=== PATIENT | male | born 1950 | race Caucasian/White ===

== ENCOUNTER → 2016-04-02 | Outpatient (CLI) | payer MEDICARE, OTHER ==
[2016-04-02 12:37] LABS: Basophils # (A) 0.1 k/uL (0-0.2); Basophils % (A) 1 %; CH 33.4; CHCM 34.6; Eosinophils # (A) 0.2 k/uL (0-0.7); Eosinophils % (A) 3 %; HCT 44.3 % (39.0-53.0); HDW 2.69; HGB 15.2 gm/dL (13.0-17.5); Luc # (Auto) 0.25; Luc % (Auto) 4; Lymphocytes # (A) 1.4 k/uL (1.0-4.8); Lymphocytes % (A) 21 %; MCH 33.1 pg (25.0-35.0); MCHC 34.2 g/dL (31.0-37.0); MCV 96.8 fL (80.0-100.0); Mean Platelet Volume 6.8; Monocytes # (A) 0.5 k/uL (0-1.0); Monocytes % (A) 7 %; Neutrophils # (A) 4.5 k/uL (1.3-7.7); Neutrophils % (A) 65 %; RBC 4.57 m/uL (4.30-5.90); RDW 12.3 % (11.5-15.5); WBC 6.9 k/uL (3.8-10.6); WBC (Perox) 7.49
[2016-04-02 12:59] LABS: ALT 41 U/L (21-72); AST 29 U/L (17-59); Alkaline Phosphatase 49 U/L (38-126); Anion Gap 12 mmol/L; Blood Urea Nitrogen 17 mg/dL (9-20); Calcium 9.4 mg/dL (8.4-10.2); Carbon Dioxide 25 mmol/L (22-30); Chloride 106 mmol/L (98-107); Cholesterol 151 mg/dL (<200); Creatine Kinase 85 U/L (55-170); Glucose 108 mg/dL (74-99); HDL Cholesterol 44 mg/dL (40-60); Non-African American GFR(MDRD) >60 (>60 ml/min/1.73 sqM); Potassium 4.7 mmol/L (3.5-5.1); Sodium 143 mmol/L (137-145); Total Bilirubin 0.7 mg/dL (0.2-1.3); Total Protein 7.3 g/dL (6.3-8.2); Triglycerides 96 mg/dL (<150)
== END | disposition home or self-care (01) ==
LOC: LABWHC1 12:09
PROVIDERS: ATTEND Family Medicine
DX: Z00.01 Encounter for general adult medical examination with abnormal findings (principal); E78.5 Hyperlipidemia, unspecified; Z12.5 Encounter for screening for malignant neoplasm of prostate; Z12.11 Encounter for screening for malignant neoplasm of colon
CPT/HCPCS: 80061; 80053; 82550; 85025; 36415; G0103

== ENCOUNTER → 2017-11-01 | Outpatient (CLI) | payer MEDICARE, OTHER ==
[2017-11-01 11:13] LABS: Basophils % (A) 1 %; Eosinophils # (A) 0.2 k/uL (0-0.7); Eosinophils % (A) 3 %; HCT 45.3 % (39.0-53.0); HGB 14.8 gm/dL (13.0-17.5); Lymphocytes # (A) 1.5 k/uL (1.0-4.8); Lymphocytes % (A) 22 %; MCH 32.2 pg (25.0-35.0); MCHC 32.7 g/dL (31.0-37.0); MCV 98.4 fL (80.0-100.0); Mean Platelet Volume 6.3; Monocytes # (A) 0.6 k/uL (0-1.0); Monocytes % (A) 8 %; Neutrophils # (A) 4.3 k/uL (1.3-7.7); Neutrophils % (A) 63 %; Platelet Count 234 k/uL (150-450); RDW 12.3 % (11.5-15.5); WBC 6.8 k/uL (3.8-10.6)
[2017-11-01 11:19] LABS: Albumin 4.1 g/dL (3.5-5.0); Calcium 9.4 mg/dL (8.4-10.2); Potassium 4.6 mmol/L (3.5-5.1); Total Bilirubin 0.6 mg/dL (0.2-1.3); Total Protein 6.9 g/dL (6.3-8.2)
[2017-11-01 11:48] LABS: PSA Annual Screen 1.93 ng/mL (0.00-4.00)
[2017-11-01 16:23] LABS: Hepatitis A Antibody IgM Non-Reactive (Non-Reactive); Hepatitis B Core IgM Non-Reactive (Non-Reactive)
== END | disposition home or self-care (01) ==
LOC: LABWHC1 10:25
PROVIDERS: ATTEND Family Medicine
DX: Z00.01 Encounter for general adult medical examination with abnormal findings (principal); Z12.5 Encounter for screening for malignant neoplasm of prostate; E78.5 Hyperlipidemia, unspecified; Z11.59 Encounter for screening for other viral diseases
CPT/HCPCS: 80061; 80053; 80074; 82550; 84443; 85025; 36415; G0103

== ENCOUNTER 2018-05-05 09:45 | Emergency (ER) | payer MEDICARE, OTHER ==
[2018-05-05] MEDS ORDERED: CYCLOBENZAPRINE 10 MG TAB PO STA (10:11)
[2018-05-05] MEDS ORDERED: KETOROLAC 60 MG/2 ML VIAL IM STA (10:11)
--- NOTE | 2018-05-05 10:25 | ED ---
Extremity Problem HPI - General Chief complaint: Extremity Problem,Nontraumatic Stated complaint: Shoulder Pain Time Seen by Provider: 05/05/18 09:52 Source: patient, RN notes reviewed, old records reviewed Mode of arrival: ambulatory Limitations: no limitations - History of Present Illness Initial comments: Patient is a 59-year-old male presents emergency department today with complaints of right shoulder plain. Patient reports he's been having symptoms intermittently for the past month. Patient reports that he's had pain with range of motion. He reports that yesterday he was lifting a book felt a sudden pop within the shoulder and has been unable to extend or abduct the arm. - Related Data Home Medications Medication Instructions Recorded Confirmed Apixaban [Eliquis] 5 mg PO BID 05/05/18 05/05/18 Metoprolol Succinate [Toprol Xl] 100 mg PO DAILY 05/05/18 05/05/18 Multivitamin,Therapeutic [Thera] 1 tab PO DAILY 05/05/18 05/05/18 Simvastatin [Zocor] 40 mg PO HS 05/05/18 05/05/18 Previous Rx's Medication Instructions Recorded Cyclobenzaprine [Flexeril] 10 mg PO TID #15 tab 05/05/18 Ibuprofen 600 mg PO TID #20 tablet 05/05/18 Allergies Allergy/AdvReac Type Severity Reaction Status Date / Time No Known Allergies Allergy Verified 05/05/18 10:15 Review of Systems ROS Statement: Those systems with pertinent positive or pertinent negative responses have been documented in the HPI. ROS Other: All systems not noted in ROS Statement are negative. Past Medical History Past Medical History: Atrial Fibrillation History of Any Multi-Drug Resistant Organisms: None Reported Past Surgical History: Appendectomy, Tonsillectomy Past Psychological History: No Psychological Hx Reported Smoking Status: Never smoker Past Alcohol Use History: Occasional Past Drug Use History: None Reported General Exam - General Exam Comments Initial Comments: 59-year-old male. Alert and oriented 3. Patient appears in no significant distress. Limitations: no limitations General appearance: alert, in no apparent distress Head exam: Present: atraumatic, normocephalic, normal inspection Eye exam: Present: normal appearance, PERRL, EOMI. Absent: scleral icterus, conjunctival injection, periorbital swelling ENT exam: Present: normal exam, mucous membranes moist Neck exam: Present: normal inspection. Absent: tenderness, meningismus, lymphadenopathy Respiratory exam: Present: normal lung sounds bilaterally. Absent: respiratory distress, wheezes, rales, rhonchi, stridor Cardiovascular Exam: Present: regular rate, normal rhythm, normal heart sounds. Absent: systolic murmur, diastolic murmur, rubs, gallop, clicks GI/Abdominal exam: Present: soft, normal bowel sounds. Absent: distended, tenderness, guarding, rebound, rigid Extremities exam: Present: normal inspection, full ROM, normal capillary refill. Absent: tenderness, pedal edema, joint swelling, calf tenderness Back exam: Present: normal inspection Neurological exam: Present: alert, oriented X3, CN II-XII intact Psychiatric exam: Present: normal affect, normal mood Skin exam: Present: warm, dry, intact, normal color. Absent: rash Course Vital Signs 05/05/18 09:47 Temperature 98.2 F Pulse Rate 94 Respiratory 18 Rate Blood Pressure 144/91 O2 Sat by Pulse 98 Oximetry Medical Decision Making - Medical Decision Making 59-year-old male presents with progressive right shoulder pain. Yesterday felt a pop and now has limited range of motion. Patient has pain with abduction. X- ray shows evidence of significant osteoarthritis. Patient was placed in a sling and advised to take anti-inflammatory medication and pain medicine as needed. Discussed the Patient can follow-up with contracting support specialist. All questions were answered return parameters were discussed. - Radiology Data Radiology results: report reviewed Before meals joint shows arthropathy. No fracture dislocation. Alignment bone mineralization are normal. Minimal apical pleural thickening on the right. Some marginal spurring present on the Lomotil humeral joint. Evidence of osteoarthritis. Disposition Clinical Impression: Osteoarthritis of right shoulder, Rotator cuff arthropathy Disposition: HOME SELF-CARE Condition: Good Instructions (If sedation given, give patient instructions): Rotator Cuff Tendinitis (ED) Additional Instructions: Patient has a rest, apply alternating ice and warm compresses over shoulder. Patient should follow-up with contracting support specialist. Wear sling for practice some range of motion to maintain flexibility within the joint. Patient should take the medication as prescribed. Return to emergency department if any alarming signs or symptoms occur. Prescriptions: Cyclobenzaprine [Flexeril] 10 mg PO TID #15 tab Ibuprofen 600 mg PO TID #20 tablet Is patient prescribed a controlled substance at d/c from ED?: No Referrals: Ke Schmidt MD [Primary Care Provider] - 1-2 days Piyush Stockton DO [Doctor of Osteopathic Medicine] - 1-2 days Joe Dockery DO [Doctor of Osteopathic Medicine] - 1-2 days Time of Disposition: 11:10
--- NOTE | 2018-05-05 10:52 | XR ---
Right shoulder HISTORY: Pain 3 views of the right shoulder Acromioclavicular joint shows arthropathy. No fracture or dislocation is evident. Alignment and bone mineralization are normal. Minimal apical pleural thickening present on the right. Some marginal spur ring present at the glenohumeral joint. IMPRESSION: Osteoarthritis.
[2018-05-05 11:27] VITALS: BP 138/68; PULSE 82; RESP 19; TEMP 98.7
== END 2018-05-05 11:27 | disposition home or self-care (01) ==
LOC: EC 09:45
DX: M19.011 Primary osteoarthritis, right shoulder (principal); I48.91 Unspecified atrial fibrillation; Z79.01 Long term (current) use of anticoagulants; Z79.899 Other long term (current) drug therapy
CPT/HCPCS: 73030; 99284; 96372; J1885

== ENCOUNTER → 2018-05-26 | Outpatient (CLI) | payer MEDICARE, OTHER ==
--- NOTE | 2018-05-26 10:03 | MR ---
EXAMINATION TYPE: MR shoulder RT wo con DATE OF EXAM: 05/26/2018 COMPARISON: X-ray 05/12/2018 HISTORY: Pain in right shoulder TECHNIQUE: Multiplanar, multisequence imaging of the right shoulder is performed without contrast. FINDINGS: Rotator Cuff: There is intrasubstance signal within the anterior fibers of the supraspinatus tendon i nsertion compatible severe tendinosis. Partial bursal surface fraying and tear noted. Acromioclavicular Joint: There is arthropathy of the AC joint which is resulting in impingement of th e supraspinatus tendon and muscle. Glenohumeral Joint: Joint space is mildly narrowed and there is a small amount of fluid within the angela int. The glenohumeral ligaments intact. Labrum: There is a SLAP tear of the superior labrum. Biceps Tendon: The long head of biceps is in normal location within bicipital groove. Increased fluid within the bicipital tendon sheath compatible tendinosis. There appears to be thinning and increased signal in the intracapsular portion of the biceps tendon suspicious for partial tear. Bone marrow signal: No focal abnormal marrow signal is appreciated. Other: Small amount of fluid is seen in the suprascapular notch tiny cyst not excluded. IMPRESSION: 1. Impingement secondary to AC joint arthropathy resulting in tendinosis supraspinatus tendon with bu rsal scuffing or partial tear at the insertion. No through thickness tear or retraction. 2. SLAP tear. 3. Bicipital tendinosis with the most marked findings seen involving the intracapsular portion of the tendon. Partial intrasubstance tear without retraction suspected.
== END | disposition home or self-care (01) ==
LOC: RADMRIMAIN 09:17
PROVIDERS: ATTEND Orthopaedic Surgery
DX: S43.491A Other sprain of right shoulder joint, initial encounter (principal); M19.011 Primary osteoarthritis, right shoulder; M67.813 Other specified disorders of tendon, right shoulder; M25.811 Other specified joint disorders, right shoulder

== ENCOUNTER → 2018-06-26 | Outpatient (CLI) | payer MEDICARE, OTHER ==
--- NOTE | 2018-06-26 19:58 | P.STRESS ---
- Stress Test Note Stress Test Results/Findings: Exam Performed: stress echo exercise Exam Date: 06/26/18 Reason for Exam: AFIB Height: 5 ft 9 in Weight: 88.451 kg Protocol: STRESS ECHO Stage: 2 Duration of Exercise: 6:00 Resting Heart Rate: 108 Resting Blood Pressure: 107/70 Maximum Achieved Heart Rate: 162 Maximum Achieved Blood Pressure: 134/68 85% PMHR: 129 100% PMHR: 152 METS: 7.5 Technologist Comment: Stress Test Results/Findings: Baseline heart rate 108 beats a minute, Baseline blood pressure 107/70 mmHg Baseline ECG shows atrial fibrillation with nonspecific ST-T abnormalities Patient excised on a Audi protocol for 6 minutes. He achieved a peak was 62 beats a minute, normal blood pressure response to excise The baseline 2-D echo images showed normal LV systolic function without segmental wall motion abnormalities At peak exercise there was excellent augmentation of overall LV contractility without development of any wall motion abnormalities @Recovery revealed global LV systolic function to be normal Impression Atrial fibrillation at baseline No ECG or echocardiographic evidence for ischemia
== END | disposition home or self-care (01) ==
LOC: RADNMMAIN 08:54
PROVIDERS: ATTEND Family Medicine
DX: I48.91 Unspecified atrial fibrillation (principal)
CPT/HCPCS: 93351

== ENCOUNTER 2018-07-06 05:53 | Day surgery (SDC) | payer MEDICARE, OTHER ==
[2018-07-03 13:16] VITALS: BMI 28.8
--- NOTE | 2018-07-05 17:08 | HP ---
HISTORY AND PHYSICAL DATE OF SURGERY: 07/06/2018 Piyush Hennessy is a 67-year-old patient seen with progressive right shoulder pain. We discussed treatment options. He elected to proceed with arthroscopy. Consent regarding the procedure was obtained. PAST MEDICAL HISTORY: Hypertension, hyperlipidemia. PAST SURGICAL HISTORY: Tonsillectomy, appendectomy. DAILY MEDICATIONS: 1. Eliquis. 2. Metoprolol. 3. Simvastatin. ALLERGIES: NONE. SOCIAL HISTORY: He denies current tobacco use. PHYSICAL EVALUATION OF THE RIGHT SHOULDER: Flexion is 100 degrees. Abduction is 90 degrees. External rotation is 60 degrees with weakness. There is tenderness along the anterolateral acromion and rotator cuff insertion site. Impingement sign is positive at 90 degrees. Drop-arm sign positive. Distal neurovascular exam intact. RADIOGRAPHS: Radiographs of the right shoulder show type 2 anterior acromion and acromioclavicular joint osteoarthritis. MRI of right shoulder shows partial rotator cuff tear, labral tear, partial long head biceps tendon tear and acromioclavicular joint osteoarthritis. IMPRESSION: 1. Right shoulder impingement with rotator cuff tear. 2. Right shoulder acromioclavicular joint osteoarthritis. 3. Right shoulder partial long head biceps tendon tear. PLAN: Right shoulder arthroscopy with subacromial decompression, probable arthroscopic rotator cuff repair, probable Mitchell procedure, possible biceps tenotomy and debridement. MMODL / IJN: [id number] /
[~2018-07-06 05:53] MED LIST: DEXAMETHASONE SOD PHOSPHATE 10 MG/ML 1 ML VIAL IV ONE; HYDROmorphone 0.5 MG/0.5 ML SYRINGE IVP PRN; LACTATED RINGERS 1,000 ML IV SCH; LIDOCAINE 1% 20 ML VIAL (10MG/ML) FOR IV START INTRADERMA PRN; ONDANSETRON 4 MG/2 ML VIAL IVP ONE; ceFAZolin IN SWFI 2 GM/20 ML SYRINGE IVP ONE
[2018-07-06] MEDS ORDERED: fentaNYL (PF) 50 MCG/ML 2 ML AMP IVP ONE (06:42)
[2018-07-06] MEDS ORDERED: MIDAZOLAM (PF) 2 MG/2 ML VIAL IVP ONE (06:42)
[2018-07-06] MEDS ORDERED: SUCCINYLCHOLINE CHLORIDE 100 MG/5 ML SYR IV ONE (07:01)
[2018-07-06] MEDS ORDERED: MIDAZOLAM 2 MG/2 ML VIAL ONE (07:01)
[2018-07-06] MEDS ORDERED: LIDOCAINE 1% INJ 10MG/ML (20 ML MDV) ONE (07:01)
[2018-07-06] MEDS ORDERED: LIDOCAINE 2%-EPI 1:100,000 20 ML VIAL ONE (07:01)
[2018-07-06] MEDS ORDERED: PROPOFOL 10 MG/ML 20 ML VIAL IV ONE (07:01)
[2018-07-06] MEDS ORDERED: ROPIVACAINE 5 MG/ML 30 ML VIAL ONE (07:01)
[2018-07-06] MEDS ORDERED: LACTATED RINGERS 1,000 ML IV ONE (08:19)
--- NOTE | 2018-07-06 08:51 | P.OP ---
Date of Procedure: 07/06/18 Preoperative Diagnosis: Right shoulder impingement Postoperative Diagnosis: 1. Right shoulder rotator cuff tear 2. Right shoulder impingement 3. Right shoulder acromioclavicular joint osteoarthritis Procedure(s) Performed: 1. Right shoulder arthroscopic rotator cuff repair 2. Right shoulder arthroscopic subacromial decompression 3. Right shoulder arthroscopic Mitchell procedure Implants: 15.5 Arthrex swivel lock anchor Anesthesia: GETA, regional (Interscalene block) Surgeon: Joe Dockery Event Management Consultant #1: Adrien High Estimated Blood Loss (ml): 10 Pathology: none sent Condition: stable Disposition: PACU Indications for Procedure: 67-year-old patient seen with progressive right shoulder pain. After treatment options were discussed, he elected to proceed with arthroscopy. Operative Findings: See description of procedure Description of Procedure: Patient underwent an interscalene block by department of anesthesia for postoperative pain management. The patient was then taken to the operative suite. The patient underwent a general anesthetic by the department of anesthesia. The patient was placed into a lateral position and secured. There was appropriate padding of the bony prominence. Right shoulder was then prepped and draped in normal sterile orthopedic fashion. We placed the extremity in 10 pounds of longitudinal traction. A posterior incision was now made for a posterior working portal site. The trocar and cannula were inserted into the glenohumeral joint. Arthroscopy was initiated. Spinal needle was now inserted anteriorly, to ascertain the anterior working portal site. An incision was now made in that area, a trocar was inserted followed by a probe. There was some superficial fraying of the superior labrum. There were grade 1 chondromalacia changes of the humeral head and glenoid fossa with no osteochondral tears present. The long head biceps tendon was absent. I debrided that area superficial fraying of labrum. Instruments now removed from glenohumeral joint. Utilizing the posterior working portal site, the trocar and cannula were inserted into the subacromial space. Arthroscopy initiated. I made an incision 2 fingerbreadths lateral to the acromion. I introduced my trocar followed by my ArthroCare ablator. I now began ablating thick subacromial bursal tissue, which exposed the undersurface of the anterior acromion. There was diminished subacromial space. There was a very prominent anterior acromion. A motorized bur was introduced and a subacromial decompression was performed. I also excised some osteophytes off the inferior aspect of the distal clavicle. The AC joint was visualized and noted to be fairly arthritic. The motorized bur was introduced in the anterior portal site and a Mitchell procedure was performed without difficulty, decompressing the AC joint nicely. I turned my attention to the rotator cuff. There was a 11.5 cm rotator cuff tear. I debrided the margins getting down to stable tendon tissue. The defect measured approximately 1.5 cm. I abraded the footprint with a motorized bur. With the assistance of Leopoldo BETANCUR passed 2 everted mattress sutures through good bites of rotator cuff tendon. I now punched a hole for anchor insertion in the footprint area. I now introduced the anchor into our pre-punch hole in Leopoldo BETANCUR appropriately tension the sutures and then deployed anchor. We had a nice repair. All residual suture limbs were now clipped. We had good compression of the tendon along the entire footprint. I injected 1 mL Renue intra-articular. Instruments now removed from the portal sites. All portal sites were approximated with nylon suture. Sterile dressings were applied followed by a shoulder sling. Adrien BETANCUR assisted in this case. The patient was awakened, transferred to a bed, and taken to recovery in stable condition.
[2018-07-06 08:52] VITALS: TEMP 97
[2018-07-06 10:40] VITALS: PULSE 73
[2018-07-06 10:41] VITALS: BP 124/82; RESP 18
--- NOTE | 2018-07-06 12:20 | P.ONQ ---
Anesthesiology Proc Note - PNB - Peripheral Nerve Block Performed Right Interscalene Single Time Out Performed: Yes Procedure Start Time: 06:42 Indication: Acute Post-Operative Pain Specifically requested for management of pain by DrDenise: Joe Dockery Sedation Type: Sedate with meaningful contact maintained Preparation: Sterile Prep Position: Supine Catheter: None Needle Types: Other (see comment) (PAJUNK) Needle Size: 50mm (2") Needle Gauge: 21 Technique: Ultrasound Injectate: 0.5% Ropivacaine (see comment for volume) (20) Blood Aspirated: No Pain Paresthesia on Injection Noted: No Resistance on Injection: Normal Events: Uneventful and Well Tolerated
== END 2018-07-06 12:15 | disposition home or self-care (01) ==
LOC: OR 05:53
PROVIDERS: ATTEND Orthopaedic Surgery
DX: M75.101 Unspecified rotator cuff tear or rupture of right shoulder, not specified as traumatic (principal); M75.41 Impingement syndrome of right shoulder; M19.011 Primary osteoarthritis, right shoulder; M94.211 Chondromalacia, right shoulder; K21.9 Gastro-esophageal reflux disease without esophagitis; I10 Essential (primary) hypertension; Z79.01 Long term (current) use of anticoagulants; E78.5 Hyperlipidemia, unspecified; I48.91 Unspecified atrial fibrillation; Z83.3 Family history of diabetes mellitus; Z82.3 Family history of stroke; Z79.899 Other long term (current) drug therapy
CPT/HCPCS: 29826; 29827; 29824; 64415; C1713; C1765; J2250 ×2; J1100; J2405; J2001; J3010; J2795; J0330; J2704; J0690

== ENCOUNTER → 2021-09-08 | Outpatient (CLI) | payer MEDICARE, OTHER ==
--- NOTE | 2021-09-08 11:23 | XR ---
EXAMINATION TYPE: XR chest 2V DATE OF EXAM: 09/08/2021 COMPARISON: NONE TECHNIQUE: PA and lateral views submitted. HISTORY: Cough FINDINGS: The lungs are clear and there is no pneumothorax, pleural effusion, or focal pneumonia. Hypertrophi c change of the spine. Heart size normal. No overt failure. Biapical pleural thickening. Vague nodule along the anterior margin left first rib. IMPRESSION: 1. Vague nodule along the anterior margin of the left first rib recommend apical lordotic view of the chest. 2. No acute infiltrate. 3. Correlate for COPD.
[2021-09-08 17:55] LABS: Basophils # (A) 0.05 X 10*3/uL (0.00-0.10); Basophils % (A) 0.6 %; Eosinophils # (A) 0.27 X 10*3/uL (0.04-0.35); Eosinophils % (A) 3.4 %; HCT 45.3 % (39.6-50.0); Immature Grans, Automated 0.2 %; Lymphocytes # (A) 1.63 X 10*3/uL (0.90-5.00); Lymphocytes % (A) 20.2 %; MCH 32.6 pg (27.0-32.0); MCHC 33.1 g/dL (32.0-37.0); MCV 98.5 fL (80.0-97.0); Mean Platelet Volume 10.1 fL (9.5-12.2); Monocytes # (A) 0.79 X 10*3/uL (0.20-1.00); Monocytes % (A) 9.8 %; NRBC Per 100 WBC 0 /100 WBCS (0.0-0.0); Neutrophils # (A) 5.29 X 10*3/uL (1.80-7.70); Neutrophils % (A) 65.8 %; Platelet Count 246 X 10*3/uL (140-440); RDW 12.2 % (11.5-14.5); WBC 8.05 X 10*3/uL (4.50-10.00)
[2021-09-08 18:10] LABS: ALT 18 U/L (10-49); AST 30 U/L (14-35); African American GFR (CKD) 79.1 (60.0-200.0); Albumin 4.5 g/dL (3.8-4.9); Albumin/Globulin Ratio 1.62 (1.60-3.17); Alkaline Phosphatase 51 U/L (41-126); BUN/Creat Ratio 19.35 Ratio (12.00-20.00); Blood Urea Nitrogen 20.9 mg/dL (9.0-27.0); Calcium 9.4 mg/dL (8.7-10.3); Carbon Dioxide 25.4 mmol/L (20.0-27.5); Chloride 102 mmol/L (96-109); Chol/HDL Ratio 3.84 Ratio; Globulin 2.8 g/dL (1.6-3.3); Glucose 117 mg/dL (70-110); LDL Cholesterol,Calculated 102.7 mg/dL (0.0-131.0); Non-African American GFR(CKD) 68.2 (60.0-200.0); Potassium 4.6 mmol/L (3.5-5.5); Sodium 140 mmol/L (135-145); Total Protein 7.3 g/dL (6.2-8.2)
== END | disposition home or self-care (01) ==
LOC: RADXRMAIN 11:01
PROVIDERS: ATTEND Internal Medicine Geriatric Medicine
DX: R05.9 Cough, unspecified (principal); I48.91 Unspecified atrial fibrillation; R73.9 Hyperglycemia, unspecified; E78.5 Hyperlipidemia, unspecified; N40.1 Benign prostatic hyperplasia with lower urinary tract symptoms
CPT/HCPCS: 71046; 80053; 80061; 83036; 84153; 84439; 84443; 85025

== ENCOUNTER → 2021-09-29 | Outpatient (CLI) | payer MEDICARE, OTHER ==
--- NOTE | 2021-09-30 21:44 | CT ---
EXAMINATION TYPE: CT chest w con DATE OF EXAM: 09/29/2021 COMPARISON: Radiograph 09/08/2021 HISTORY: 71-year-old male R93.89, lung nodule seen on x-ray. Abdominal pain. Coughing. TECHNIQUE: Contiguous axial scanning of the chest after the administration of 100 mL of Isovue 300. Coronal/sagittal reconstructions performed. CT DLP: 569mGycm. Automatic exposure control utilized for a dose reduction. FINDINGS: Heart normal size with small pericardial effusion measuring 8 mm thick. LAD coronary artery calcifica tions are present. There is aneurysm of the ascending aorta 5.0 cm. There is a direct takeoff of the left vertebral marleny ry directly from the aortic arch. Mild atherosclerotic arch calcifications. Scattered nonenlarged mediastinal lymph nodes measuring up to 9 mm in the AP window. No thoracic lymp hadenopathy by CT size criteria. Trace bilateral gynecomastia. Mild biapical pleural-parenchymal scarring. There is mild diffuse bronchial wall thickening. Some str shania atelectasis in the lower lungs. There may be some mild subpleural interstitial fibrosis at the l guilherme bases. No consolidation or pleural effusion. Tiny calcified granuloma medial right midlung, axial image 24. No suspicious pulmonary nodule or mass. Questioned radiographic findings likely correspond to a prominent hyperostotic left anterior first rib end. There is a moderate-sized hiatal hernia. 6 mm hypodensity in the hepatic dome, likely tiny cysts. Vis ualized upper abdomen otherwise shows no gross abnormality. Bones: Mild degenerative disc disease throughout the visualized findings with accentuated thoracic ky phosis. IMPRESSION: 1. Mild diffuse bronchial wall thickening suggests bronchitis or chronic asthma. There may be some mi ld chronic interstitial scarring/fibrosis at the lower lungs. 2. No suspicious pulmonary nodule. The questioned radiographic finding likely corresponds to a hypero stotic left anterior first rib end. 3. A 5 cm ascending aortic aneurysm. Appropriate surveillance follow-up recommended. 4. Small pericardial effusion measuring 8 mm thick. CAD with LAD coronary artery calcifications. 5. Moderate-sized hiatal hernia.
== END | disposition home or self-care (01) ==
LOC: RADCTMAIN 14:54
PROVIDERS: ATTEND Internal Medicine Geriatric Medicine
DX: R93.89 Abnormal findings on diagnostic imaging of other specified body structures (principal)
CPT/HCPCS: 82565; 84520; 71260; 36415; Q9967

== ENCOUNTER → 2021-12-23 | Outpatient (CLI) | payer MEDICARE, OTHER ==
[2021-12-23 18:26] LABS: African American GFR (CKD) 84.7 (60.0-200.0); Blood Urea Nitrogen 18.2 mg/dL (9.0-27.0); Non-African American GFR(CKD) 73.1 (60.0-200.0)
== END | disposition home or self-care (01) ==
LOC: LABWHC1 10:39
PROVIDERS: ATTEND Student in an Organized Health Care Education/Training Program
DX: R54 Age-related physical debility (principal)
CPT/HCPCS: 36415; 82565; 84520

== ENCOUNTER → 2023-11-14 | Outpatient (CLI) | payer MEDICARE, OTHER ==
[2023-11-14 15:00] LABS: African American GFR (CKD) 89 (>60 ml/min/1.73 sqM); Blood Urea Nitrogen 19 mg/dL (9-20); Non-African American GFR(CKD) 77 (>60 ml/min/1.73 sqM)
--- NOTE | 2023-11-14 19:28 | CT ---
INDICATION: Patient age:Male; 73 years old; Reason for study: I71.20 THORACIC AORTIC ANEURYSM, WITHOUT RUPTURE,; [facility]. COMPARISON: CT chest 09/29/2021 TECHNIQUE: Multiple axial images of the chest were obtained prior to and following intravenous admini stration of Isovue-370. Coronal and sagittal reformatted images were obtained. 3-D reconstructed imag es and maximum intensity projection images were obtained of the abdomenOne or more CT dose reduction strategies were utilized during this examination. Total DLP administered 749.90 mGycm FINDINGS: VASCULAR FINDINGS: ARTERIAL VASCULATURE: The unenhanced images do not demonstrate any evidence to suggest intramural hematoma. 4 vessel aortic arch. Mild atherosclerotic calcification of the aorta and its branches. Redemonstration of ascending thoracic aortic aneurysm measuring up to 4.9 cm, previously 5.0 cm. The aortic root measures up to 3 .5 cm. The descending thoracic aorta measures up to 2.3 cm. Mild tortuosity descending thoracic aorta . No evidence for dissection. The pulmonary outflow tract appears within normal limits for size. Gre at arch vessels patent and normal in course and caliber. PULMONARY ARTERIAL VASCULATURE: Normal caliber. CHEST: LUNGS: Subsegmental atelectasis is present in the lung bases. No pleural effusion pneumothorax. No fo rosie consolidation. LARGE AIRWAYS: Central airways are patent. PLEURAL: No pleural effusion or thickening. No pneumothorax. HEART AND PERICARDIUM: The heart is mildly enlarged. There is a small pericardial effusion present. M ild coronary artery calcifications present. MEDIASTINUM AND TERENCE: No mediastinal or hilar lymphadenopathy or soft tissue mass. CHEST WALL AND LOWER NECK: Minimal bilateral gynecomastia. UPPER ABDOMEN: Moderate sized hiatal hernia. BONES: No acute fracture. Mild degenerative changes of the thoracic spine. IMPRESSION: 1. Stable 4.9 cm ascending aortic aneurysm, previously 5 cm. Appropriate surveillance follow-up recom mended. 2. Similar small pericardial effusion. 3. Moderate size hiatal hernia redemonstrated. [facility], , 11/14/2023 7:26 PM
== END | disposition home or self-care (01) ==
LOC: RADCTMAIN 14:14
PROVIDERS: ATTEND Internal Medicine Interventional Cardiology
DX: I71.20 Thoracic aortic aneurysm, without rupture, unspecified
CPT/HCPCS: 36415; 71275; 74175; 82565; 84520

== ENCOUNTER → 2024-04-27 | Outpatient (CLI) | payer MEDICARE, OTHER ==
[~2024-04-27] MED LIST changes: -DEXAMETHASONE SOD PHOSPHATE 10 MG/ML 1 ML VIAL IV ONE; -HYDROmorphone 0.5 MG/0.5 ML SYRINGE IVP PRN; +IODINE/POTASSIUM IODIDE 14 ML BOTTLE ONE; -LACTATED RINGERS 1,000 ML IV SCH; -LIDOCAINE 1% 20 ML VIAL (10MG/ML) FOR IV START INTRADERMA PRN; -ONDANSETRON 4 MG/2 ML VIAL IVP ONE; -ceFAZolin IN SWFI 2 GM/20 ML SYRINGE IVP ONE
--- NOTE | 2024-04-27 14:38 | NM ---
EXAMINATION TYPE: NM DatScan Brain SPECT DATE OF EXAM: 04/27/2024 COMPARISON: NONE CLINICAL INDICATION: Male, 73 years old with history of R25.1 TREMOR, UNSPECIFIED; TECHNIQUE: 10 drops of Lugol's solution was administered 1 hour prior to injection as a thyroid bloc velia agent. After the administration of 4.8 mCi I-123 Ioflupane DaTscan. Images obtained [address] injection. SPECT images of the brain were acquired with axial and coronal reconstructions. FINDINGS: The DaTSCAN demonstrates balanced striatal loss to the Posterior putamen bilaterally. IMPRESSION: This abnormal appearance is supportive of a clinical diagnosis of DLB, idiopathic PD, Parkinson?s dementia complex, or PS. [facility], , 04/27/2024 2:36 PM
== END | disposition home or self-care (01) ==
LOC: RADNMMAIN 09:02
PROVIDERS: ATTEND Internal Medicine Geriatric Medicine
DX: R25.1 Tremor, unspecified (principal); F02.80 Dementia in other diseases classified elsewhere, unspecified severity, without behavioral disturbance, psychotic disturbance, mood disturbance, and anxiety
CPT/HCPCS: 78803; A9584